=== PATIENT | male | born 1985 | race African-American/Black ===

== ENCOUNTER 2024-02-14 14:45 | Observation (INO) | payer BC, SELFPAY ==
[2024-02-14] MEDS ORDERED: Nitroglycerin 0.4 MG TAB (25 Tab Bottle) SL PRN (15:12)
[2024-02-14] MEDS ORDERED: Dextrose 5% in Water 1,000 ML IV PRN (15:12)
[2024-02-14] MEDS ORDERED: Dextrose 50% Abboject 50 ML SYRINGE SLOW IVP PRN (15:12)
[2024-02-14] MEDS ORDERED: Glucagon 1 MG/ML KIT IM PRN (15:12)
[2024-02-14 15:14] VITALS: BMI 35.5
[2024-02-14 16:19] LABS: ALT (SGPT) 29 U/L (8-55); AST (SGOT) 21 U/L (5-34); Albumin 3.4 g/dL (3.5-5.0); Alkaline Phosphatase 62 U/L (40-110); Anion Gap 14 mmol/L (10-20); BUN (Urea Nitrogen) 10 mg/dL (8.9-20.6); Bilirubin, Total 0.3 mg/dL (0.2-1.2); Calc. Creatinine Clearance 154 mL/min (70-130); Calcium 9.2 mg/dL (7.8-10.44); Carbon Dioxide 23 mmol/L (22-29); Chloride 103 mmol/L (98-107); Estimated GFR 92; Globulin 3.8 g/dL (2.4-3.5); Glucose 297 mg/dL (70-105); Protein, Total 7.2 g/dL (6.0-8.3); Sodium 136 mmol/L (136-145)
[2024-02-14 16:22] LABS: Troponin I Less than 0.010 ng/mL (< 0.028)
[2024-02-14] MEDS: Insulin Lispro 100 UNIT/ML 10 ML VIAL SC PRN ×2 (16:56→21:12)
[2024-02-14] MEDS: Aspirin 325 MG TAB PO SCH (16:56)
[2024-02-14 19:14] LABS: Troponin I Less than 0.010 ng/mL (< 0.028)
[2024-02-14] MEDS: Atorvastatin Calcium 10 MG TAB PO SCH (21:07)
[2024-02-14] MEDS: Nicotine 14 MG PATCH TD SCH (22:26)
[2024-02-15 03:53] LABS: #Basophils 0.05 10x3/uL (0.0-0.2); #Eosinphils 0.19 10x3/uL (0.0-0.5); #Monocytes 0.35 10x3/uL (0.0-1.1); #Neutrophils 2.57 10x3/uL (1.5-8.4); %Basophils 0.8 % (0.0-2.0); %Lymphocytes 49.7 % (18.0-47.0); %Monocytes 5.6 % (0.0-10.0); %Neutrophils 40.7 % (40.0-75.0); Hematocrit 36.2 % (38.8-50.0); Mean Corpuscular HGB CONC 35.9 g/dL (32.0-36.0); Mean Corpuscular Hemoglobin 27.3 pg (27.0-33.0); Mean Corpuscular Volume 76.1 fL (81.2-95.1); Mean Platelet Volume 10.4 fL (7.4-10.4); Platelet Count 335 10x3/uL (150-450); RBC Distribution Width 13.4 % (11.5-14.5); Red Blood Cell (RBC) Count 4.76 10x6/uL (4.32-5.72); White Blood Cell (WBC) Count 6.3 10x3/uL (3.5-10.5)
[2024-02-15 04:14] LABS: Anion Gap 14 mmol/L (10-20); BUN (Urea Nitrogen) 12 mg/dL (8.9-20.6); Calc. Creatinine Clearance 167 mL/min (70-130); Calcium 8.7 mg/dL (7.8-10.44); Carbon Dioxide 22 mmol/L (22-29); Cardiac Risk 4.8 (Less than 4.5); Chloride 103 mmol/L (98-107); Cholesterol 154 mg/dl (< 200 Desired); Estimated GFR 101; Glucose 287 mg/dL (70-105); HDL Cholesterol 32 mg/dL (>60 Neg Risk); LDL Cholesterol, Calculated 95 mg/dL; Potassium 3.8 mmol/L (3.5-5.1); Sodium 135 mmol/L (136-145); Triglycerides 136 mg/dL (Less than 150)
[2024-02-15] MEDS: Lisinopril 10 MG TAB PO SCH (10:56)
[2024-02-15] MEDS: Aspirin Chewable 81 MG TAB PO SCH (10:56)
[2024-02-15 11:07] VITALS: BP 125/78; TEMP 98
[2024-02-15] MEDS ORDERED: metFORMIN 500 MG TAB PO SCH (21:00)
[2024-02-17 12:07] LABS: Hemoglobin A1c Greater than 14.0 % (4.0-6.0)
== END 2024-02-15 11:40 | disposition home or self-care (01) ==
LOC: INTOOBSV 14:45 → CSHTELE 14:45
PROVIDERS: ADMIT Family Medicine; ATTEND Family Medicine
DX: R07.89 Other chest pain (principal); E11.65 Type 2 diabetes mellitus with hyperglycemia; I10 Essential (primary) hypertension; E78.5 Hyperlipidemia, unspecified; E66.9 Obesity, unspecified; F17.220 Nicotine dependence, chewing tobacco, uncomplicated; Z79.84 Long term (current) use of oral hypoglycemic drugs; Z79.899 Other long term (current) drug therapy
CPT/HCPCS: 36415; 36416; 80048; 80053; 80061; 83036; 84443; 84484; 85025; 93306; G0378; J1815